=== PATIENT | male | born 1940 | race Caucasian/White ===

== ENCOUNTER 2018-01-24 07:30 | Outpatient (CLI) | payer MEDICARE, OTHER ==
--- NOTE | 2018-01-24 14:44 | MRI ---
MRI LUMBAR SPINE: 01/24/2018 HISTORY: Left lower extremity radiculopathy. Pain. COMPARISON: 09/14/2016 TECHNIQUE: Multiplanar, multisequence MR imaging of the lumbar spine is provided without contrast. FINDINGS: The sagittal STIR imaging demonstrates no focal area of osseous marrow edema. No anterolisthesis or retrolisthesis is noted within the lumbar spine. Assuming five lumbar type vertebral bodies, the conus medullaris terminates at the L1 level. There is a tiny syrinx noted at the distal-most aspect of the thoracic cord, best seen on axial image 5 of the T2 weighted imaging, at the T12-L1 level, stable. This is better assessed on thoracic spin e MRI. T12-L1: Mild bilateral facet hypertrophy. There is disk desiccation and mild anterior osteophyte fo rmation with no significant central canal or neural foraminal stenosis. L1-L2: Mild bilateral facet hypertrophy. There is disk desiccation. No significant central canal o r neural foraminal stenosis. Mild anterior osteophyte formation. L2-L3: Mild bilateral facet hypertrophy. There is minimal disk bulge with disk desiccation and mild anterior osteophyte formation. No significant central canal or neural foraminal stenosis. L3-L4: There is a small left paracentral disk protrusion, which causes a mild-moderate degree of lef t lateral recess stenosis, similar when compared to prior imaging. There is mild bilateral facet hyp ertrophy. There is no significant neural foraminal stenosis noted on either side. L4-L5: Disk space narrowing, disk desiccation, and mild disk bulge present. No significant central canal stenosis. Small disk protrusion in the left paracentral region. Minimal left lateral recess s tenosis. Mild left neural foraminal stenosis. No significant right neural foraminal stenosis. L5-S1: Disk space narrowing, disk desiccation, and degenerative endplate change noted. No central c anal stenosis. Bilateral facet hypertrophy with mild bilateral neural foraminal stenosis, unchanged. Stable cysts noted in the lower pole of the right kidney. IMPRESSION: Stable lumbar spine MRI, as detailed above. POS: [facility]
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
--- NOTE | 2018-01-24 14:54 | MRI ---
MRI THORACIC SPINE NONCONTRAST: 01/24/2018 HISTORY: A 77-year-old male with chronic mid back pain. FINDINGS: There is no compression fracture. No bone marrow edema. Disk space narrowing at T5-T6, T6-T7, T7-T8 , and T8-T9, with several small Schmorl's nodes. The disk space narrowing is greatest at T7-T8, wher e there is a broad-based central and bilateral paracentral (left greater than right) disk herniation or disk osteophyte complex, which indents the ventral aspect of the spinal cord. There is no high-gr cristian central spinal canal stenosis at any level. However, there is abundant fat in the posterior and bilateral epidural space, causing thecal sac stenosis. The thecal sac stenosis is moderate from appr oximately T5 through T6-T7. The thecal sac stenosis is moderate to severe at T7-T8. There is minima l dilation of the central canal of the spinal cord (minimal hydromyelia) from approximately T4 throug h T11. No severe neural foraminal stenosis at any level. Nonspecific left thyroid nodules are noted . IMPRESSION: 1. Thoracic spondylosis, with degenerative disease at several levels in the mid thoracic spine, wors t at T7-T8. 2. Small broad-based disk herniation versus disk-osteophyte complex, indenting the thoracic spinal c ord at T7-T8. POS: [facility]
== END 2018-01-24 07:31 | disposition home or self-care (01) ==
LOC: SCSMRI 07:30
PROVIDERS: ATTEND Neurological Surgery
DX: M47.812 Spondylosis without myelopathy or radiculopathy, cervical region (principal); R29.898 Other symptoms and signs involving the musculoskeletal system; M47.814 Spondylosis without myelopathy or radiculopathy, thoracic region; M51.34 Other intervertebral disc degeneration, thoracic region; M51.16 Intervertebral disc disorders with radiculopathy, lumbar region; M48.061 Spinal stenosis, lumbar region without neurogenic claudication; M48.07 Spinal stenosis, lumbosacral region; M51.37 Other intervertebral disc degeneration, lumbosacral region; M47.817 Spondylosis without myelopathy or radiculopathy, lumbosacral region; M25.78 Osteophyte, vertebrae; N28.1 Cyst of kidney, acquired; M99.73 Connective tissue and disc stenosis of intervertebral foramina of lumbar region
CPT/HCPCS: 72141; 72146; 72148

== ENCOUNTER 2018-04-30 15:07 | Emergency (ER) | payer MEDICARE, OTHER ==
[2018-04-30] MEDS ORDERED: Ketorolac Tromethamine 30 MG/ML VIAL ONE (15:30)
--- NOTE | 2018-04-30 16:31 | ULT ---
RIGHT LOWER EXTREMITY VENOUS DUPLEX ULTRASOUND INCLUDING COLOR AND SPECTRAL DOPPLER IMAGING: History: Right leg pain, swelling, and edema. FINDINGS: Exam performed from groin to ankle including visualized greater saphenous, common femoral, superficia l femoral, profunda femoral, popliteal, trifurcation and posterior tibial vein regions. Phasic flow a t all levels with normal compressibility and normal augmentation. No intraluminal thrombus. IMPRESSION: No evidence for deep venous thrombosis. POS: [facility]
== END 2018-04-30 15:49 | disposition home or self-care (01) ==
LOC: SCSER 15:07
DX: M25.561 Pain in right knee (principal); F41.9 Anxiety disorder, unspecified; F32.9 Major depressive disorder, single episode, unspecified; Z86.718 Personal history of other venous thrombosis and embolism; Z79.899 Other long term (current) drug therapy
CPT/HCPCS: J1885

== ENCOUNTER 2018-07-15 12:12 | Outpatient (CLI) | payer MEDICARE, OTHER ==
--- NOTE | 2018-07-15 12:46 | RAD ---
2 views of the chest: 07/15/2018 COMPARISON: 05/09/2014 HISTORY: Cough FINDINGS: No pneumothorax or pleural fluid. No focal consolidation or alveolar edema. Heart and media stinal contours appear grossly unremarkable. No acute osseous abnormality is noted. IMPRESSION: No radiographic evidence of acute cardiopulmonary disease.
== END 2018-07-15 12:13 | disposition home or self-care (01) ==
LOC: BICRAD 12:12
PROVIDERS: ATTEND Family Medicine
DX: R05 Cough (principal)
CPT/HCPCS: 36415; 71046; 80053; 81001; 85025; 87086

== ENCOUNTER 2018-11-14 08:58 | Inpatient (IN) | payer MEDICARE, OTHER ==
[2018-11-14] MEDS ORDERED: Ondansetron PF 4 MG/2 ML Vial ONE ×2 (09:02→12:32)
[2018-11-14] MEDS ORDERED: diphenhydrAMINE 50 MG/ML VIAL ONE ×2 (09:08→12:32)
[2018-11-14] MEDS ORDERED: methylPREDNISolone Sod Succ/PF 125 MG/2 ML VIAL ONE (09:08)
[2018-11-14] MEDS ORDERED: Famotidine/PF 20 mg/2ml Vial ONE (09:08)
[2018-11-14 09:30] LABS: #Basophils 0.1 thou/uL (0.0-0.2); #Eosinphils 0.3 thou/uL (0.0-0.7); #Lymphocytes 4.6 thou/uL (1.20-3.40); %Basophils 0.5 % (0.0-1.0); %Eosinophils 1.5 % (0.0-10.0); %Lymphocytes 26.9 % (21.0-51.0); %Neutrophils 65.1 % (42.0-75.0); Hemoglobin 13.5 g/dL (14.0-18.0); Mean Corpuscular HGB CONC 33.8 g/dL (32.0-36.0); Mean Platelet Volume 7.8 fL (7.4-10.4); Platelet Count 312 thou/uL (130-400); Red Blood Cell (RBC) Count 3.99 mill/uL (4.70-6.10); White Blood Cell (WBC) Count 16.9 thou/uL (4.8-10.8)
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
--- NOTE | 2018-11-14 09:33 | RAD ---
EXAM: Single view of the chest HISTORY: Chest pain COMPARISON: 07/18/2016 FINDINGS: Single view of the chest shows a normal sized cardiomediastinal silhouette. There is no bean dence of consolidation, mass, or pleural effusion. Degenerative changes are seen in the spine. IMPRESSION: No evidence of acute cardiopulmonary disease
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
[2018-11-14 09:35] LABS: PTT 23.7 SEC (22.9-36.1); Prothrombin Time 12.8 SEC (12.0-14.7)
[2018-11-14] MEDS ORDERED: Fentanyl 100 MCG/2 ML VIAL ONE ×7 (09:52→18:55)
[2018-11-14 09:53] LABS: ALT (SGPT) 14 U/L (8-55); AST (SGOT) 17 U/L (5-34); Albumin 4.6 g/dL (3.4-4.8); Alkaline Phosphatase 64 U/L (40-150); Anion Gap 18 mmol/L (10-20); BUN (Urea Nitrogen) 23 mg/dL (8.4-25.7); Bilirubin, Total 0.5 mg/dL (0.2-1.2); Calc. Creatinine Clearance 0 mL/min (70-130); Calcium 9.8 mg/dL (7.8-10.44); Carbon Dioxide 18 mmol/L (23-31); Chloride 108 mmol/L (98-107); Estimated GFR-MDRD 57; Globulin 2.1 g/dL (2.4-3.5); Glucose 172 mg/dL (83-110); Potassium 3.7 mmol/L (3.5-5.1); Protein, Total 6.7 g/dL (5.8-8.1); Sodium 140 mmol/L (136-145)
[2018-11-14] MEDS ORDERED: Ketorolac Tromethamine 30 MG/ML VIAL ONE ×2 (09:54→18:44)
[2018-11-14] MEDS ORDERED: Midazolam HCl 2 mg/2 ml Vial ONE (10:00)
[2018-11-14] MEDS ORDERED: Diazepam 5 MG TAB ONE (10:02)
[2018-11-14] MEDS ORDERED: Diazepam 10 MG/2 ML SYRINGE ONE (10:02)
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
--- NOTE | 2018-11-14 10:41 | CT ---
EXAM: 1. CT of the chest with contrast 2. CT of the abdomen and pelvis with contrast 3. Limited CT of the thoracic and lumbosacral spine with contrast HISTORY: Trauma after being trampled by a bull with chest pain, abdominal pain, and back pain. COMPARISON: None TECHNIQUE: 1. Multiple contiguous axial images were obtained in a CT the chest with contrast. Coronal reformats were performed. 2. Multiple contiguous axial images were obtained in a CT of the abdomen and pelvis with contrast. Co bhavya reformats were performed. 3. Limited CTs of the thoracic and lumbosacral spines were performed with contrast. Sagittal and jessie nal re-reformats were created based off images obtained in the chest, abdomen, and pelvic CTs. FINDINGS: CT CHEST: Mediastinum: Heart is normal in size without focal cardiac abnormality. No hilar or mediastinal lymph adenopathy. No mediastinal hemorrhage. Lungs: No focal infiltrates or nodules. Pleural space: No pneumothorax or pleural effusion. Thoracic bones: No evidence of acute fracture. Thoracic chest wall: Unremarkable. CT ABDOMEN/PELVIS: Peritoneum: No free air or free fluid, or stranding changes. Liver: Unremarkable. Gallbladder: Unremarkable. Adrenal glands: Unremarkable. Kidneys: Hypodensities in the kidneys measuring up to 1.8cm in size represent cysts. Spleen: Unremarkable. Pancreas: Unremarkable. Bowel: Scattered diverticula in the colon. Retroperitoneum: No lymphadenopathy. Atherosclerotic calcifications in the aorta. Pelvis: No focal mass or abnormality. The reproductive organs are unremarkable. Pelvic bones: No acute fracture identified. There is a fracture of the intertrochanteric left femur. LIMITED CT OF THE THORACIC AND LUMBOSACRAL SPINE: No fracture or dislocation are seen. Degenerative changes in the spine. No prevertebral soft tissue s welling are present. IMPRESSION: 1. No evidence of acute intrathoracic abnormality 2. No evidence of acute intra-abdominal or pelvic abnormality 3. No evidence of acute osseous abnormality of the thoracic or lumbosacral spine. 4. Bilateral renal cysts 5. Diverticulosis 6. Left proximal femur fracture
[2018-11-14] MEDS ORDERED: CEFAZOLIN 2 GM in Premix Bag 1 BAG IVPB SCH (11:15)
--- NOTE | 2018-11-14 11:31 | CON ---
DATE OF CONSULTATION: This is Aleksandar Meyers PA-C dictating a report for Frederic Johnson MD. HISTORY OF PRESENT ILLNESS: We were asked to see the patient after he was stopped by a bull. The patient is in room 9 in the emergency room. He is awake, alert, and in fair amount of distress. All of his family is at his bedside. Apparently, there was no loss of consciousness. The patient is able to answer questions well. I have been told by family they are Jehovah's Witnesses and do not wish to have any blood products whatsoever. The patient is complaining of significant left hip pain. He has good sensations down the left lower extremity. ALLERGIES: HE HAS MULTIPLE DRUG SENSITIVITIES. IT SOUNDS LIKE MORE NAUSEA, NOT A TRUE HISTAMINE RESPONSE, BUT HE CLAIMS CODEINE SULFATE, IODINE, MORPHINE, AND SENSITIVE TO OTHER NARCOTIC AGENTS. CURRENT MEDICATIONS: 1. Lorazepam. 2. CoQ10. PAST MEDICAL HISTORY: Positive for a blood clot in his arm after PICC line placement. He saw a doctor in [place], who said he is not susceptible to blood clots. He has also had history of MS and Lyme disease, gets treated for this. SURGICAL HISTORY: Vasectomy, sigmoid colon, hemorrhoids, appendectomy. PSYCHIATRIC HISTORY: Does struggle with a little anxiety and depression. SOCIAL HISTORY: No alcohol, nicotine, or drug use. Lives at home. Again, family is at bedside. FAMILY HISTORY: Not pertinent to this admission. REVIEW OF SYSTEMS: He has multiple health issues, but his main complaint is aches and pains from the recent bull trampling. PHYSICAL EXAMINATION: GENERAL: Well-nourished, well-developed male in a fair amount of distress in room 9 in the emergency room. His speech is clear, oriented x3. HEENT: He does have some bruising to the right upper forehead, but his face is otherwise symmetrical. Tongue midline. NECK: Supple. Trachea midline. EXTREMITIES: Upper extremities, equal size, shape, symmetry. Normal bulk and tone. Lower extremities, left lower extremity is definitely shortened and quite painful with any movement whatsoever. His DP and PT pulses are intact as are sensations. RESPIRATORY: No distress. ASSESSMENT: Bull trampling with an ensuing left hip fracture. PLAN: Spoke with Dr. Johnson. Would like to get him on the schedule today for a short TFN. I have talked to the family about this. They are all in agreement that it needed to be fixed. They reiterated they were Jehovah's Witnesses, we will take that into consideration. The surgery has been explained. They understand the risks, benefits and they are all amenable to go forth with surgery. Trauma will admit and are managing his other health issues. Job ID: [id number]
[2018-11-14] MEDS ORDERED: Rocuronium Bromide 10 MG/ML (10ML VIAL) ONE (12:32)
[2018-11-14] MEDS ORDERED: Lidocaine 2% PF 5 ML VIAL ONE (12:32)
[2018-11-14] MEDS ORDERED: Glycopyrrolate 0.2 MG/ML 5 ML SYRINGE ONE (12:32)
[2018-11-14] MEDS ORDERED: Dexamethasone 20 MG/5 ML VIAL ONE (12:32)
[2018-11-14] MEDS ORDERED: PROPOFOL 200 MG/20 ML VIAL ONE (12:32)
[2018-11-14 13:13] LABS: Bilirubin Negative (Negative); Blood, Urine Negative (Negative); Clarity Clear (Clear); Glucose, Urine (Dipstick) Normal (Negative); Leukocyte Negative Leu/uL (Negative); Nitrite Negative (Negative); Protein, Urine (Dipstick) Negative (Neg-Trace); Urobilinogen Normal mg/dL (Less than 2)
--- NOTE | 2018-11-14 13:45 | HP ---
HISTORY OF PRESENT ILLNESS: Mr. Platt is a 78-year-old man, a Jehovah witness, who was kicked by a bull, knocking him to the ground. The patient suffered no loss of consciousness. He immediately felt severe pain in his left hip, which made it impossible for him to bear weight. His witnessed the incident and summoned help. The patient was brought to the Emergency Department via ground EMS. He arrived with Rosa M Coma Scale of 15 and complaining of severe "12/10" left hip pain. He is otherwise able to move all extremities and follows commands. PAST MEDICAL HISTORY: Pertinent for polyposis coli, muscular sclerosis, Lyme disease, and previous lower extremity DVT. PAST SURGICAL HISTORY: Pertinent for hemorrhoidectomy, childhood appendectomy, and laparoscopic sigmoid colectomy with primary anastomosis for a large benign colonic polyp. SOCIAL HISTORY: He is , lives at home with his . He denies any cigarette smoking, ethanol, or illicit drug abuse. FAMILY HISTORY: Noncontributory for this patient's age. PREHOSPITAL MEDICATIONS: Includes; 1. Lorazepam 2 mg p.o. at bedtime. 2. CoQ10 of 10 mg p.o. daily. 3. Multiple vitamins and herbs. ALLERGIES: ALLERGIES TO MORPHINE SULFATE, IODINE, AND CODEINE. REVIEW OF SYSTEMS: A 10-point review of systems essentially unremarkable except as stated in past medical history and chief complaint. PHYSICAL EXAMINATION: GENERAL: This reveals a 78-year-old normally developed man, who is otherwise coherent and interactive and appears stated age. The patient is alert and oriented x3, appears to be in moderate acute distress secondary to severe left hip pain. VITAL SIGNS: Include blood pressure 160/86, pulse 104, respiratory rate is 22, temperature 98.4 degrees Fahrenheit, and oxygen saturation 96% on room air. HEENT: Reveals right periorbital ecchymosis with minimum soft tissue swelling. Otherwise, the remainder of the head is normocephalic. Pupils are equal, round, and reactive to light and accommodation. Extraocular muscles are intact bilaterally. The patient has no scleral icterus present. Midface is stable. No gross deformities or step-offs present. He has a normal bite. NECK: Cervical spine immobilized in a C-collar, maintained in a neutral position during my examination. He has no cervical neck tenderness to palpation. Due to distracting injuries, we did not attempt to perform any passive range of motion. HEART: Reveals regular rate and rhythm. No murmurs or gallops auscultated. LUNGS: Clear to auscultation bilaterally. Breathing, regular and unlabored. Chest wall is stable without any gross deformities or palpable crepitus. PELVIS: Left pelvis is exquisitely tender even with slight manipulation. EXTREMITIES: The left leg is shortened and externally rotated. Extremities otherwise reveals 2+ radial and pedal pulses bilaterally. No ankle edema is present. GENITOURINARY: Reveals bilateral descended testicles. Normal male genitalia. He has no blood in his urethral meatus. There was no ecchymosis or hematoma of the scrotum or perineum. NEUROLOGIC: Reveals no focal deficits present. LABORATORY FINDINGS: Today include a CBC with 16,900 white blood cells and hemoglobin and hematocrit are 13.5 and 40.1 respectively. Platelet count is 312,000. PTT and INR normal are normal 23.7 seconds and 1.0 respectively. Metabolic profile; sodium 140, potassium 3.7, chloride is 108, bicarb is 18, BUN 23, creatinine is 1.22, glucose 172, total bilirubin 0.5, and AST and ALT normal at 17 and 14 respectively. Alkaline phosphatase is also normal at 64. I have personally reviewed all radiographic studies including an unremarkable chest x-ray. X-ray of the pelvis reveals a comminuted displaced left intertrochanteric femur fracture. CT scan of the brain and cervical spine are unremarkable for any acute traumatic injuries. CT scan of the chest, abdomen, and pelvis are unremarkable for any acute intrathoracic or intraabdominal pathology. CT scan of the thoracic and lumbar spine revealed no fractures or dislocation. IMPRESSION: 1. Status post blunt trauma to the left hip been kicked by a bull. 2. Complete displaced left intertrochanteric femur fracture. 3. Right periorbital contusion. 4. Essential hypertension. PLAN: 1. Optimize pain control. 2. Orthopedic surgical consultation regarding the left hip fracture dislocation. 3. We will initiate chemical VTE prophylaxis following operative intervention to the left hip injury. Above findings and plan has been discussed with the patient and his large family at bedside. They indicated understanding of information given. I have answered their questions. The patient has granted consent for this admission and surgical intervention. Job ID: [id number]
[2018-11-14] MEDS ORDERED: ISOVUE-370 76%-LOCM 1 ML ONE (17:13)
[2018-11-14] MEDS ORDERED: Dextrose 50% Abboject 50 ML SYRINGE SLOW IVP PRN (17:44)
[2018-11-14] MEDS ORDERED: Ondansetron PF 4 MG/2 ML Vial IVP PRN (17:44)
[2018-11-14] MEDS ORDERED: Ondansetron ODT 4 MG TAB PO PRN (17:44)
[2018-11-14] MEDS ORDERED: Fentanyl 100 MCG/2 ML VIAL SLOW IVP PRN (17:44)
[2018-11-14] MEDS ORDERED: Dextrose 5% in Water 1,000 ML IV PRN (17:44)
[2018-11-14] MEDS ORDERED: Meperidine HCl/PF 25 MG/ML VIAL SLOW IVP PRN (17:57)
[2018-11-14] MEDS ORDERED: Ondansetron HCl/PF 4 MG/2 ML Vial IVP PRN (17:57)
[2018-11-14] MEDS ORDERED: Promethazine HCl 25 MG/ML VIAL SLOW IVP PRN (17:57)
[2018-11-14] MEDS: Acetaminophen 1,000 MG in Premix Bag 1 BAG IVPB SCH ×2 (19:40→23:19)
[2018-11-14] MEDS: Ketorolac Tromethamine 30 MG/ML VIAL IVP SCH ×2 (19:40→23:18)
[2018-11-14] MEDS: Sodium Chloride 0.9% 1,000 ML IV SCH ×2 (19:52→23:20)
[2018-11-14] MEDS ORDERED: Lorazepam 1 MG TAB PO SCH (21:00)
[2018-11-14] MEDS: Famotidine 20 MG TAB PO SCH (21:28)
[2018-11-14] MEDS: CEFAZOLIN 2 GM in Premix Bag 1 BAG IVPB SCH (21:30)
[2018-11-14 21:49] VITALS: BMI 29.3
[2018-11-14] MEDS: Senokot S 8.6-50 MG TAB PO SCH (22:31)
--- NOTE | 2018-11-14 22:38 | RAD ---
Left hip intraoperative fluoroscopy 2 views HISTORY: Hip fracture. FINDINGS: Intraoperative fluoroscopy was provided for internal fixation is performed by Dr. Johnson . Spot fluoroscopic images show short medullary noah and compression nail transfixing the left hip fracture, in anatomic alignment. Fluoroscopy time 50 seconds.
[2018-11-14] MEDS ORDERED: Gabapentin 100 MG CAP PO PRN (23:37)
[2018-11-14] MEDS ORDERED: Ibuprofen 600 MG TAB PO PRN (23:38)
[2018-11-14] MEDS: traMADol HCl 50 MG TAB PO SCH (23:53)
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
--- NOTE | 2018-11-15 01:13 | OP ---
DATE OF PROCEDURE: 11/14/2018 PROCEDURE PERFORMED: Left femur intramedullary nail. PREOPERATIVE DIAGNOSIS: intertrochanteric fracture POSTOPERATIVE DIAGNOSIS: intertrochanteric fracture. COMPLICATIONS: None. ESTIMATED BLOOD LOSS: 100 mL. PLATFORM BUILDER: Aleksandar Meyers PA-C IMPLANT: Synthes 11 mm short trochanteric nail with central screw. INDICATIONS: Mr. Platt is a 78-year-old male, who has been injured by a bull. He fractured the left proximal femur. He was indicated for intramedullary nail fixation to restore anatomic alignment and promote healing and promote early mobilization. Risks have been reviewed. 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 He is also at risk for wound complication infection, nerve or vascular injury, DVT, and others. DESCRIPTION OF PROCEDURE: Mr. Platt was identified in the preoperative holding area. His correct extremity was marked. He was carried to the operating room. He was positioned supine. General anesthesia was induced. A multidisciplinary time-out was performed. The left lower extremity was prepped and draped in sterile fashion. We began the procedure with placing the patient's left leg in traction. We manipulated the leg with traction and rotation. Once we had anatomic reduction, we prepped the leg. We made a small incision over the greater trochanter. We then inserted a guidewire. We overdrilled the guidewire. We then inserted our 11 mm trochanteric nail. This was seated appropriately. We then placed our central guidewire into the femoral head using the appropriate aiming arm. Once we had a central position, we proceeded to overdrill the guidewire. We then placed our central screw. At this point, we compressed the fracture with an appropriate device. We then locked the screw in the dynamic position. Finally, we placed a distal Crosslock screw. We thoroughly irrigated. We then closed with 0 Vicryl suture, 2-0 Vicryl suture, and mellisa for the skin. A sterile dressing was applied at this point. The patient was taken to the recovery room in good condition without complication. Job ID: [id number]
[2018-11-15] MEDS: Ketorolac Tromethamine 30 MG/ML VIAL IVP SCH (05:44)
[2018-11-15] MEDS: traMADol HCl 50 MG TAB PO SCH ×4 (05:45→23:43)
[2018-11-15] MEDS: CEFAZOLIN 2 GM in Premix Bag 1 BAG IVPB SCH (05:45)
[2018-11-15] MEDS ORDERED: Acetaminophen 500 MG TAB PO SCH ×2 (06:00→10:16)
[2018-11-15 07:22] LABS: #Lymphocytes 2.3 thou/uL (1.20-3.40); #Monocytes 1.2 thou/uL (0.11-0.59); #Neutrophils 15.8 thou/uL (1.40-6.50); %Basophils 0.1 % (0.0-1.0); %Eosinophils 0.1 % (0.0-10.0); %Lymphocytes 11.7 % (21.0-51.0); %Monocytes 6.1 % (0.0-10.0); Mean Corpuscular HGB CONC 33.5 g/dL (32.0-36.0); Mean Corpuscular Hemoglobin 34.3 pg (27.0-31.0); Mean Platelet Volume 7.9 fL (7.4-10.4); Platelet Count 232 thou/uL (130-400); RBC Distribution Width 11.9 % (11.5-14.5); Red Blood Cell (RBC) Count 2.91 mill/uL (4.70-6.10); White Blood Cell (WBC) Count 19.2 thou/uL (4.8-10.8)
[2018-11-15 07:40] LABS: Anion Gap 16 mmol/L (10-20); BUN (Urea Nitrogen) 21 mg/dL (8.4-25.7); Calc. Creatinine Clearance 55 mL/min (70-130); Calcium 8.4 mg/dL (7.8-10.44); Carbon Dioxide 19 mmol/L (23-31); Chloride 104 mmol/L (98-107); Estimated GFR-MDRD 49; Glucose 119 mg/dL (83-110); Magnesium 1.7 mg/dL (1.6-2.6); Phosphorus 3.4 mg/dL (2.3-4.7); Potassium 4.5 mmol/L (3.5-5.1); Sodium 134 mmol/L (136-145)
[2018-11-15] MEDS: Famotidine 20 MG TAB PO SCH ×2 (09:06→20:27)
[2018-11-15] MEDS: Polyethylene Glycol 3350 17 GM Packet PO SCH (09:06)
[2018-11-15] MEDS: Senokot S 8.6-50 MG TAB PO SCH ×2 (09:06→20:27)
[2018-11-15] MEDS: Aspirin 81 mg Enteric Coated Tablet PO SCH ×2 (09:13→20:27)
[2018-11-15] MEDS ORDERED: Fentanyl 100 MCG/2 ML VIAL SLOW IVP PRN (10:13)
[2018-11-15] MEDS ORDERED: HYDROcodone/Acetaminophen 5/325 mg Tablet PO PRN (10:13)
[2018-11-15] MEDS: HYDROcodone/Acetaminophen 5/325 mg Tablet PO SCH ×2 (11:50→18:05)
[2018-11-15] MEDS: Acetaminophen 325 MG TAB PO SCH ×3 (11:54→23:43)
[2018-11-15] MEDS: Diazepam 5 MG TAB PO SCH ×2 (15:22→20:27)
--- NOTE | 2018-11-15 15:33 | PRG ---
DATE OF SERVICE: 11/15/2018 SUBJECTIVE: The patient is currently on the surgical floor. He is hospital day 2, postoperative day 1 status post being knocked over by a bull. The patient sustained a hip fracture, which he has undergone open reduction and internal fixation of same and specifically intramedullary nail of his left femur. The patient tolerated this procedure well. Overnight, he did not have any issues. This morning though when trying to work with therapy, his pain was significant. The patient has been refusing his oral pain medication in fear of making him nauseated. To attempt to get him to move with therapy, Dr. Callaway did order one-time dose of fentanyl this morning, and the nurses explained to him that we can ensure that he has food on the stomach with Zofran available to attempt his oral medications. He and the family understood and agreed, and we will attempt this. Currently, the patient has been accepted to rehab and will likely be discharged there tomorrow. OBJECTIVE: VITAL SIGNS: Temperature is 97.8, heart rate 71, blood pressure 117/67, respirations 14, oxygen saturation 97% on room air. GENERAL: The patient is resting on the side of the bed. He is working with the therapist as we entered his room this morning. He is awake, alert, and appropriate. Rosa M coma scale is 15. HEENT: Unremarkable. LUNGS: Clear to auscultation with good inspiratory and expiratory effort. HEART: Regular rate and rhythm. ABDOMEN: Soft, flat, and nontender with active bowel sounds. EXTREMITIES: Neurovascularly intact x4. Postoperative dressing is clean, dry, and intact. LABORATORY FINDINGS: White blood cell count 19.1, hemoglobin 10.0, hematocrit 29.0, platelets 232. Sodium 134, potassium 4.5, chloride 104, CO2 of 19, BUN 21, creatinine 1.39, glucose 119, magnesium 1.7, phosphorus 3.4. There are no radiographs to review this morning. ASSESSMENT: 1. Status post being crushed by a bull. 2. Status post intramedullary nailing, left femur fracture. 3. Acute kidney injury. 4. Acute pain secondary to trauma. PLAN: Plan will be to adjust pain medications. Continue gentle fluid hydration. Encourage p.o. intake. Encourage physical and occupational therapy. We will recheck his kidney function in the morning. Adjust pain medications again as directed and work with the patient on his pain control. The patient will likely again be discharged to rehab tomorrow. The evaluation and examination were done with Dr. Callaway during rounds this morning. Job ID: [id number]
[2018-11-15] MEDS: traMADol HCl 50 MG TAB PO PRN (15:37)
[2018-11-15] MEDS ORDERED: Lorazepam 1 MG TAB PO SCH (21:00)
--- NOTE | 2018-11-16 01:20 | PRG ---
DATE OF SERVICE: 11/16/2018 SUBJECTIVE: Mr. Platt is a 78-year-old gentleman, Jehovah Witness, who was kicked by a bull, knocked him to the ground. The patient sustained displaced left intertrochanteric femur fracture and he underwent ORIF of left intertrochanteric femur fracture yesterday. Postop, the patient has been doing good. Pain is well controlled. Able to work with PT/OT today. He is able to sit up in the bed with still nonweightbearing from the left lower extremity. He developed no fever or shortness of breath. OBJECTIVE: GENERAL: The patient is lying down in bed comfortably. LUNGS: Clear bilaterally. HEART: Regular rate and rhythm. ABDOMEN: Soft, nondistended. NEUROLOGIC: No focal neuro deficits. MUSCULOSKELETAL: Left hip dressing is clean, clear, and intact. PLAN: Will be continue pain control. Continue DVT and gastritis prophylaxis. Continue working with PT/OT. Anticipate placement in rehab. Job ID: [id number]
[2018-11-16] MEDS: HYDROcodone/Acetaminophen 5/325 mg Tablet PO SCH ×3 (01:33→12:27)
[2018-11-16] MEDS: Acetaminophen 325 MG TAB PO SCH ×2 (06:52→12:25)
[2018-11-16] MEDS: traMADol HCl 50 MG TAB PO SCH ×3 (06:52→13:25)
[2018-11-16 08:42] VITALS: TEMP 98
[2018-11-16] MEDS: Aspirin 81 mg Enteric Coated Tablet PO SCH (09:43)
[2018-11-16] MEDS: Famotidine 20 MG TAB PO SCH (09:44)
[2018-11-16] MEDS: Senokot S 8.6-50 MG TAB PO SCH (09:44)
[2018-11-16] MEDS: Diazepam 5 MG TAB PO SCH (09:48)
[2018-11-16] MEDS: Polyethylene Glycol 3350 17 GM Packet PO SCH (09:48)
[2018-11-16] MEDS: traMADol HCl 50 MG TAB PO PRN (10:00)
[2018-11-16] MEDS ORDERED: Cyclobenzaprine 10 MG TAB PO PRN (10:57)
[2018-11-16 11:36] VITALS: BP 148/68
--- NOTE | 2018-11-16 22:46 | DIS ---
DATE OF ADMISSION: 11/14/2018 DATE OF DISCHARGE: 11/16/2018 ADMISSION DIAGNOSES: 1. Status post being kicked by a bull in left hip. 2. Complete displaced left intertrochanteric femur fracture. 3. Right periorbital contusion. 4. Essential hypertension. CONSULTATIONS: Orthopedics, Dr. Johnson. PROCEDURES: Left femur intramedullary nail. SUMMARY: The patient is a 78-year-old man, who was reportedly kicked by a bull knocking him to the ground. The patient was brought to the emergency department, where he underwent evaluation and examination, was noted to have a left intertrochanteric hip fracture. He was stabilized in the emergency department and eventually taken that same day to the operating room to undergo the above procedure, which he tolerated well. The patient would begin working with Physical and Occupational Therapy. The patient is a Taoist, and believes primarily in homeopathic medicines and initially he was reluctant to take pain medicines, eventually was convinced to utilize some medicines at least tramadol to assist in him working with Physical and Occupational Therapy. This did make a marked improvement of the pain, which the patient was able to be discharged to rehab facility. At the time of discharge, the patient's pain was controlled. He was tolerating a diet. He was ambulating with assistance. He will follow up with Dr. Johnson in 2 to 3 weeks, or sooner as needed. Job ID: [id number]
== END 2018-11-16 13:30 | DRG 481 ==
LOC: ERS 08:58 → SDC/OP 15:00 → SURG A 18:45
PROVIDERS: ADMIT Surgery; ATTEND Surgery
PROC: 0QS736Z Reposition Left Upper Femur with Intramedullary Internal Fixation Device, Percutaneous Approach (ICD-10-PCS; principal; 2018-11-14)
DX: S72.142A Displaced intertrochanteric fracture of left femur, initial encounter for closed fracture (principal); N17.9 Acute kidney failure, unspecified; S00.11XA Contusion of right eyelid and periocular area, initial encounter; F41.9 Anxiety disorder, unspecified; I10 Essential (primary) hypertension; Z88.5 Allergy status to narcotic agent; W55.22XA Struck by cow, initial encounter; Z88.2 Allergy status to sulfonamides; Z86.718 Personal history of other venous thrombosis and embolism; Z91.013 Allergy to seafood
CPT/HCPCS: 36415; 70450; 71045; 71260; 72125; 72170; 74177; 76000; 80048; 80053; 81003; 83735; 84100; 85025; 85610; 85730; 93005; 96374; 96375; 96376; C1713; G0390; J0131; J0690; J1100; J1200; J1885; J2001; J2250; J2405; J2704; J2930; J3010; J3360; Q9966; S0028

== ENCOUNTER 2018-12-20 20:25 | Inpatient (IN) | payer MEDICARE, OTHER ==
[2018-12-20 21:08] LABS: #Basophils 0.1 thou/uL (0.0-0.2); #Eosinphils 0.1 thou/uL (0.0-0.7); #Lymphocytes 2.8 thou/uL (1.20-3.40); #Monocytes 1.1 thou/uL (0.11-0.59); #Neutrophils 13.2 thou/uL (1.40-6.50); %Basophils 0.3 % (0.0-1.0); %Eosinophils 0.4 % (0.0-10.0); %Monocytes 6.5 % (0.0-10.0); %Neutrophils 76.8 % (42.0-75.0); Hemoglobin 12.1 g/dL (14.0-18.0); Mean Corpuscular HGB CONC 33.3 g/dL (32.0-36.0); Mean Corpuscular Hemoglobin 33.8 pg (27.0-31.0); Mean Platelet Volume 6.8 fL (7.4-10.4); Platelet Count 273 thou/uL (130-400); RBC Distribution Width 12.2 % (11.5-14.5); Red Blood Cell (RBC) Count 3.59 mill/uL (4.70-6.10); White Blood Cell (WBC) Count 17.2 thou/uL (4.8-10.8)
[2018-12-20 21:31] LABS: ALT (SGPT) 9 U/L (8-55); AST (SGOT) 13 U/L (5-34); Albumin 3.8 g/dL (3.4-4.8); Alkaline Phosphatase 117 U/L (40-110); Anion Gap 14 mmol/L (10-20); BUN (Urea Nitrogen) 11 mg/dL (8.4-25.7); Bilirubin, Total 0.7 mg/dL (0.2-1.2); Calc. Creatinine Clearance 0 mL/min (70-130); Calcium 8.9 mg/dL (7.8-10.44); Carbon Dioxide 18 mmol/L (23-31); Chloride 97 mmol/L (98-107); Estimated GFR-MDRD 71; Globulin 2.7 g/dL (2.4-3.5); Glucose 123 mg/dL (83-110); Potassium 3.9 mmol/L (3.5-5.1); Protein, Total 6.5 g/dL (5.8-8.1); Sodium 125 mmol/L (136-145)
[2018-12-20 21:46] LABS: Bacteria/HPF 1+ HPF (None Seen); Bilirubin Negative (Negative); Blood, Urine Negative (Negative); Clarity Clear (Clear); Glucose, Urine (Dipstick) Normal (Negative); Leukocyte 250 Leu/uL (Negative); Nitrite 2+ (Negative); Protein, Urine (Dipstick) Negative (Neg-Trace); RBC/HPF 0-3 HPF (0-3); Squamous Epithelial None Seen HPF (0-3); Urobilinogen Normal mg/dL (Less than 2)
--- NOTE | 2018-12-20 22:07 | PDOC.FPRHP ---
- History of Present Illness Chief Complaint: Dysuria, Frequency History of Present Illness: Mr. Platt is a pleasant 78 y/o male w/ a PMH significant for Peyronie 's Disease, BPH, MS and TIA who presents to the ED w/ a 3-4W history of dysuria and frequency. He states that he had begun a regimen of PO Bactrim 1 day prior, but became worried when he vomited twice and found his temperature to be 100.0 F. Of note, he had recently had a left hip reconstruction following a ranching accident and had been receiving in-patient rehab until 2W prior. He denies any hematuria and confusion, as well as chills, headaches, visual disturbances, chest pain or shortness of breath. PCP: Omar Urologist: Rock - Allergies/Adverse Reactions Allergies Allergy/AdvReac Type Severity Reaction Status Date / Time codeine Allergy throat Verified 11/14/18 21:47 closes up hydrocodone Allergy throat Verified 11/14/18 21:48 closes up iodine Allergy Verified 07/18/16 14:00 morphine Allergy throat Verified 11/14/18 21:47 closes up - Home Medications Medication Instructions Recorded Confirmed Type LORazepam [Lorazepam] 2 mg PO HS 11/14/18 12/21/18 History Acetaminophen [Tylenol Regular 650 mg PO Q6HR PRN 12/21/18 12/21/18 History Strength] Aspirin [Ecotrin Low Strength] 81 mg PO DAILY 12/21/18 12/21/18 History Ibuprofen [Motrin] 800 mg PO Q4HR PRN 12/21/18 12/21/18 History Phenazopyridine HCl [Azo Standard] 97.5 mg PO BID #14 tab 12/22/18 Rx Sulfamethoxazole/Trimethoprim 1 tab PO BID #14 tab 12/22/18 Rx [Bactrim DS] Comments: Shellfish (Anaphylaxis) - History PMHx: Lyme Disease, MS, Peyronie's, BPH, TIA PSHx: 1M s/p Left Hip Reconstruction Sigmoid Colectomy FHx: Non-Contributory Social: Denies x3. Works as a rancher. - Review of Systems General: reports: fever/chills. denies: weight/appetite/sleep changes, night sweats, fatigue Eyes: denies: eye pain, vision changes ENT: denies: nasal congestion, rhinorrhea Respiratory: denies: cough, congestion, shortness of breath Cardiovascular: denies: chest pain, edema Gastrointestinal: denies: nausea, vomiting, diarrhea, constipation, abdominal pain, GI bleeding Genitourinary: reports: dysuria, polyuria. denies: discharge Skin: denies: rashes Musculoskeletal: reports: pain, stiffness. denies: arthritis/arthralgias Neurological: denies: syncope, weakness - Vital signs BP: [138/95] HR: [83] RR: [18] Tmax: [] Pox: []% on [] Wt: [] - Physical Exam Constitutional: NAD, awake, alert and oriented, well developed HEENT: normocephalic and atraumatic, PERRLA, EOMI, conjunctiva clear, no scleral icterus, grossly normal vision, grossly normal hearing, normal nasal mucosa, MMM, oropharynx clear, good dention Neck: supple, FROM, trachea midline, no LAD Chest: no-tender to palpation, no lesions Heart: RRR, normal S1/S2, no murmurs/rubs/gallops, pulses present, no edema Lungs: CTAB, no respiratory distress, good air movement, no rales/rhonchi, no wheezing, no retractions Abdomen: soft, non-tender, bowel sounds present, no masses/distention Musculoskeletal: normal structure, normal tone Neurological: no focal deficit Skin: no rash/lesions, no jaundice Heme/Lymphatic: no unusual bruising or bleeding, no purpura, no petechia, no LAD Psychiatric: normal mood and affect, good judgment and insight, intact recent and remote memory FMR H&P: Results - Labs Result Diagrams: 12/22/18 06:01 12/22/18 06:01 Lab results: WBC 17.2 thou/uL (4.8-10.8) H 12/20/18 20:57 Hgb 12.1 g/dL (14.0-18.0) L 12/20/18 20:57 Hct 36.4 % (42.0-52.0) L 12/20/18 20:57 MCV 101.0 fL (78.0-98.0) H 12/20/18 20:57 Plt Count 273 thou/uL (130-400) 12/20/18 20:57 Neutrophils % 76.8 % (42.0-75.0) H 12/20/18 20:57 Sodium 125 mmol/L (136-145) L 12/20/18 20:57 Potassium 3.9 mmol/L (3.5-5.1) 12/20/18 20:57 Chloride 97 mmol/L (98-107) L 12/20/18 20:57 Carbon Dioxide 18 mmol/L (23-31) L 12/20/18 20:57 BUN 11 mg/dL (8.4-25.7) 12/20/18 20:57 Creatinine 1.01 mg/dL (0.7-1.3) 12/20/18 20:57 Glucose 123 mg/dL (83-110) H 12/20/18 20:57 Calcium 8.9 mg/dL (7.8-10.44) 12/20/18 20:57 Total Bilirubin 0.7 mg/dL (0.2-1.2) 12/20/18 20:57 AST 13 U/L (5-34) 12/20/18 20:57 ALT 9 U/L (8-55) 12/20/18 20:57 Alkaline Phosphatase 117 U/L (40-110) H 12/20/18 20:57 Serum Total Protein 6.5 g/dL (5.8-8.1) 12/20/18 20:57 Albumin 3.8 g/dL (3.4-4.8) 12/20/18 20:57 Urine Ketones Negative mg/dL (Negative) 12/20/18 21:31 Urine Blood Negative (Negative) 12/20/18 21:31 Urine Nitrite 2+ (Negative) A 12/20/18 21:31 Ur Leukocyte Esterase 250 Sudha/uL (Negative) A 12/20/18 21:31 Urine RBC 0-3 HPF (0-3) 12/20/18 21:31 Urine WBC 11-20 HPF (0-3) A 12/20/18 21:31 Ur Squamous Epith Cells None Seen HPF (0-3) 12/20/18 21:31 Urine Bacteria 1+ HPF (None Seen) 12/20/18 21:31 FMR H&P: A/P - Problem List (1) Failure of outpatient treatment Status: Acute Code(s): Z78.9 - OTHER SPECIFIED HEALTH STATUS (2) UTI (urinary tract infection) Status: Acute (3) Hyponatremia Status: Acute Code(s): E87.1 - HYPO-OSMOLALITY AND HYPONATREMIA (4) Status post hip surgery Status: Acute Code(s): Z98.890 - OTHER SPECIFIED POSTPROCEDURAL STATES - Plan 1. UTI w/ Failed Outpatient Treatment -History of BPH and Peyronie's Disease concerning, may be contributing factors to current symptoms -Physical exam unremarkable - afebrile w/o hypotension, tachycardia or CVA / suprapubic tenderness -Patient did not meet Sepsis Criteria -WBC: 17.2 -Lactic Acid: Pending -Urine Culture: Pending -Blood Culture: Pending -s/p 1 dose of Levaquin and Ceftriaxone in ED 2. Hyponatremia -Na: 125 -NS @ 125 ml/hr -Will continue to monitor 3. History of Recent Hip Surgery -Patient placed on Walking Program to encourage ambulation -PT: Consulted -OT: Consulted -Case Management: Consulted Code: Full Diet: HH Activity: As Tolerated DVT PPx: SCDs and Lovenox Dispo: Patient admitted to Medical Floor for IV antibiotic treatment. Await blood and urine cultures and transition to PO antibiotics. Expected LOS < 24H. FMR H&P: Upper Level - Pertinent history I was present with the news internship and scribed the above HPI. I made edits as needed. - Pertinent findings Pt overall well appearing. No CVA tenderness noted. Cardio: RRR, no murmurs or gallops Resp: CTA-B, no wheezes or crackles Abdomen: NTTP, no masses, no hernias - Plan Date/Time: 12/20/18 2205 ICarlos PGY-3, have evaluated this patient and agree with findings/ plan as outlined by news internship resident. Pertinent changes/additions are listed here. When we went down and saw the patient there was concern for sepsis. He only had an elevated white count. He had no abnormal vitals. VSS. There was concern for blood infection and patient was concerned. Pt had only been on bactrim one day. At this time we will admit patient for UTI and to continue to monitor. Will tx with Rocephin. At this time there is no concern for sepsis. Pt has peyrones and BPH would be complicating picture. Addendum - Attending - Attending Attestation Date/Time: 12/21/18 0843 I personally evaluated the patient and discussed the management with Dr. Gonzalez and Dr. Nice I agree with the History, Examination, Assessment and Plan documented above with any addition or exceptions noted below. Continue IV antibx. Rule out worsening urinary retension as complicating factor. Urology as needed. Cedrick
[2018-12-20] MEDS ORDERED: cefTRIAXone\\ROCEPHIN 2 GM VIAL ONE (22:16)
[2018-12-21 02:54] VITALS: BMI 27.7
[2018-12-21] MEDS ORDERED: Acetaminophen 325 MG TAB PO PRN (05:24)
[2018-12-21] MEDS ORDERED: Ondansetron ODT 4 MG TAB PO PRN (05:24)
[2018-12-21] MEDS ORDERED: Senokot S 8.6-50 MG TAB PO PRN (05:24)
[2018-12-21 05:57] LABS: Lactic Acid 2.1 mmol/L (0.5-2.2)
--- NOTE | 2018-12-21 06:00 | PDOC.FM ---
- Subjective Subjective: Patient doing well this morning. Reports that he is still having dysuria, worse than his baseline dysuria at home due to his peyronie's disease. Abdomen not ttp , otherwise doing well. No complaints, agreeable to current plan of care. - Objective Vital Signs & Weight: Vital Signs (12 hours) Temp Pulse Resp BP Pulse Ox 12/20/18 23:55 98.1 F 81 20 149/79 H 98 Weight Weight 85.275 kg Result Diagrams: 12/20/18 20:57 12/21/18 06:54 Phys Exam - Physical Examination Constitutional: NAD HEENT: moist MMs, sclera anicteric Neck: supple, full ROM Respiratory: no wheezing, clear to auscultation bilateral Cardiovascular: RRR, no significant murmur Gastrointestinal: soft, non-tender Musculoskeletal: no edema, pulses present Neurological: non-focal, normal sensation Lymphatic: no nodes Psychiatric: normal affect, A&O x 3 Skin: no rash, normal turgor Dx/Plan (1) Failure of outpatient treatment Code(s): Z78.9 - OTHER SPECIFIED HEALTH STATUS Status: Acute (2) Hyponatremia Code(s): E87.1 - HYPO-OSMOLALITY AND HYPONATREMIA Status: Acute (3) Status post hip surgery Code(s): Z98.890 - OTHER SPECIFIED POSTPROCEDURAL STATES Status: Acute (4) UTI (urinary tract infection) Status: Acute - Plan Plan: 78 y/o male w/ a PMHx significant for Peyronie's Disease, BPH, MS and TIA is admitted for complicated UTI that failed outpatient tx #UTI w/ Failed Outpatient Treatment -History of BPH and Peyronie's Disease concerning, may be contributing factors to current symptoms -Patient afebrile overnight -WBC: 17.2 -Lactic Acid: 2.1 -Urine Culture: Pending -Blood Culture: Pending, NGTD -s/p 1 dose of Levaquin and Ceftriaxone in ED, transition to PO Bactrim today #Hyponatremia -Na: 125 > 134 -NS @ 125 ml/hr -Will continue to monitor #History of Recent Hip Surgery -Patient placed on Walking Program to encourage ambulation -PT/OT consult -Case Management: Consulted Code: Full Diet: HH Activity: As Tolerated DVT PPx: SCDs and Lovenox Dispo: Patient admitted to Medical Floor for IV antibiotic treatment. Blood and urine cultures pending. Transition to PO antibiotics today, PT/OT Addendum - Attending - Attending Attestation Date/Time: 12/21/18 2190 I personally evaluated the patient and discussed the management with Dr. Tubbs I agree with the History, Examination, Assessment and Plan documented above with any addition or exceptions noted below - Patient feeling better except for dysuria more than his usual. Also not urinating as much as his usual. Afebrile VSS A/P: 1) UTI - continue current antibiotics. Await urine culture. Will give trial of pyridium for dysuria. Will also check bladder USG for urinary retention. 2) MS- stable
[2018-12-21] MEDS: Sodium Chloride 0.9% 1,000 ML IV SCH ×2 (07:38→14:44)
[2018-12-21 07:45] LABS: Anion Gap 13 mmol/L (10-20); BUN (Urea Nitrogen) 12 mg/dL (8.4-25.7); Calc. Creatinine Clearance 71 mL/min (70-130); Calcium 9.1 mg/dL (7.8-10.44); Carbon Dioxide 24 mmol/L (23-31); Chloride 101 mmol/L (98-107); Estimated GFR-MDRD 70; Glucose 95 mg/dL (83-110); Potassium 4.2 mmol/L (3.5-5.1); Sodium 134 mmol/L (136-145)
[2018-12-21] MEDS: Enoxaparin Sodium 40 MG/0.4 ML SYRINGE SC SCH (08:40)
[2018-12-21] MEDS ORDERED: Sulfameth/Trimethoprim DS 800-160mg TAB PO SCH (09:00)
[2018-12-21] MEDS ORDERED: Enoxaparin Sodium 40 MG/0.4 ML SYRINGE SC SCH (09:00)
[2018-12-21] MEDS: Phenazopyridine HCl 97.5 MG TABLET PO SCH ×2 (12:19→18:22)
[2018-12-21] MEDS ORDERED: cefTRIAXone\\ROCEPHIN 1 GM in Sodium Chloride 0.9% 100 ML IVPB SCH ×2 (19:00→22:00)
[2018-12-22] MEDS: Sodium Chloride 0.9% 1,000 ML IV SCH ×2 (00:24→08:34)
--- NOTE | 2018-12-22 05:11 | PDOC.FM ---
- Subjective Subjective: Patient reports that he is still having dysuria, with the pain being felt mostly in his penis toward the end of urination. He states that he also has polyuria. Also states that he is agitated by the IVs being in his arm, eager to go home. - Objective Vital Signs & Weight: Vital Signs (12 hours) Temp Pulse Resp BP Pulse Ox 12/22/18 04:00 97.3 F L 73 15 132/69 96 12/22/18 00:00 97.6 F 74 15 129/69 97 12/21/18 20:00 97.4 F L 74 16 156/72 H 97 Weight Weight 85.275 kg I&O: 12/20/18 12/21/18 12/22/18 06:59 06:59 06:59 Intake Total 3640 Output Total 2325 Balance 1315 Result Diagrams: 12/22/18 06:01 12/22/18 06:01 Phys Exam - Physical Examination Constitutional: NAD (though clearly uncomfortable) HEENT: moist MMs, sclera anicteric Neck: supple, full ROM Respiratory: no wheezing, clear to auscultation bilateral Cardiovascular: RRR, no significant murmur Gastrointestinal: soft, non-tender Musculoskeletal: no edema, pulses present Neurological: normal sensation, moves all 4 limbs Lymphatic: no nodes Psychiatric: normal affect, A&O x 3 Skin: no rash, normal turgor Dx/Plan (1) Failure of outpatient treatment Code(s): Z78.9 - OTHER SPECIFIED HEALTH STATUS Status: Acute (2) Hyponatremia Code(s): E87.1 - HYPO-OSMOLALITY AND HYPONATREMIA Status: Acute (3) Status post hip surgery Code(s): Z98.890 - OTHER SPECIFIED POSTPROCEDURAL STATES Status: Acute (4) UTI (urinary tract infection) Status: Acute - Plan Plan: 78 y/o male w/ a PMHx significant for Peyronie's Disease, BPH, MS and TIA is admitted for complicated UTI that failed outpatient tx #UTI w/ Failed Outpatient Treatment -History of BPH and Peyronie's Disease concerning, may be contributing factors to current symptoms -Patient afebrile overnight -WBC: 17.2 -Lactic Acid: 2.1 -Urine Culture: Pending -Blood Culture: Pending, NGTD -s/p 1 dose of Levaquin and Ceftriaxone in ED, was continued on ceftriaxone overnight and will like transition to PO abx today and d/c home -Azo for discomfort #Hyponatremia -Na: 125 > 134 > 128 -NS @ 125 ml/hr -Will continue to monitor #History of Recent Hip Surgery -Patient placed on Walking Program to encourage ambulation -PT/OT consult -Case Management: Consulted Code: Full Diet: HH Activity: As Tolerated DVT PPx: SCDs and Lovenox Dispo: Patient admitted to Medical Floor for IV antibiotic treatment. Blood and urine cultures pending. Transition to PO antibiotics today, PT/OT, likely d/c today Addendum - Attending - Attending Attestation Date/Time: 12/22/18 5686 I personally evaluated the patient and discussed the management with Dr. Tubbs I agree with the History, Examination, Assessment and Plan documented above with any addition or exceptions noted below - Patient c/o continued discomfort with urination; no improvement with pyridium. Feels he is urinating more. Afebrile VSS. A/P: 1) UTI- culture pending; Bladder scan with no retention. Plan to d/c home later today after culture returns.
[2018-12-22 06:21] LABS: #Eosinphils 0.2 thou/uL (0.0-0.7); #Lymphocytes 2.4 thou/uL (1.20-3.40); #Monocytes 0.6 thou/uL (0.11-0.59); #Neutrophils 5.4 thou/uL (1.40-6.50); %Basophils 0.5 % (0.0-1.0); %Eosinophils 2.8 % (0.0-10.0); %Lymphocytes 27.9 % (21.0-51.0); %Monocytes 6.8 % (0.0-10.0); Hemoglobin 11.1 g/dL (14.0-18.0); Mean Corpuscular HGB CONC 34.7 g/dL (32.0-36.0); Mean Corpuscular Hemoglobin 34.9 pg (27.0-31.0); Mean Platelet Volume 7.2 fL (7.4-10.4); Platelet Count 265 thou/uL (130-400); RBC Distribution Width 12.1 % (11.5-14.5); Red Blood Cell (RBC) Count 3.16 mill/uL (4.70-6.10); White Blood Cell (WBC) Count 8.7 thou/uL (4.8-10.8)
[2018-12-22 06:54] LABS: ALT (SGPT) 8 U/L (8-55); AST (SGOT) 15 U/L (5-34); Albumin 3.4 g/dL (3.4-4.8); Alkaline Phosphatase 95 U/L (40-110); Anion Gap 12 mmol/L (10-20); BUN (Urea Nitrogen) 8 mg/dL (8.4-25.7); Bilirubin, Total 0.5 mg/dL (0.2-1.2); Calc. Creatinine Clearance 74 mL/min (70-130); Calcium 8.9 mg/dL (7.8-10.44); Carbon Dioxide 21 mmol/L (23-31); Chloride 99 mmol/L (98-107); Estimated GFR-MDRD 74; Globulin 2.6 g/dL (2.4-3.5); Glucose 107 mg/dL (83-110); Potassium 4.4 mmol/L (3.5-5.1); Sodium 128 mmol/L (136-145)
[2018-12-22] MEDS ORDERED: Phenazopyridine HCl 97.5 MG TABLET PO SCH (07:32)
[2018-12-22] MEDS ORDERED: Polyethylene Glycol 3350 17 GM Packet PO ONE (08:00)
[2018-12-22] MEDS: Enoxaparin Sodium 40 MG/0.4 ML SYRINGE SC SCH (08:26)
[2018-12-22] MEDS: Phenazopyridine HCl 97.5 MG TABLET PO SCH ×3 (08:26→16:09)
[2018-12-22 15:13] VITALS: BP 135/70; TEMP 98.1
--- NOTE | 2018-12-22 20:36 | DIS ---
DATE OF ADMISSION: 12/20/2018 DATE OF DISCHARGE: 12/22/2018 ADMITTING RESIDENT: Carlos Nice MD ADMITTING ATTENDING: Gareth Engel MD DISCHARGE RESIDENT: Ashely Tubbs MD DISCHARGE ATTENDING: Ximena Jarrett MD CONSULTATIONS: OT/PT, walking program, Case Management. PRIMARY DIAGNOSES: Complicated urinary tract infection, hyponatremia. SECONDARY DIAGNOSIS: History of recent hip surgery. DISCHARGE MEDICATIONS: 1. Tylenol 650 mg p.o. q.6 hours p.r.n. 2. Aspirin 81 mg p.o. daily. 3. Ibuprofen 800 mg p.o. q.4 hours p.r.n. 4. Lorazepam 2 mg p.o. at bedtime. 5. Phenazopyridine 97.5 mg p.o. b.i.d. x14 tabs. 6. Bactrim DS one tab p.o. b.i.d. x7 days. DISCONTINUED MEDICATIONS: 1. Ceftriaxone. 2. Lovenox. 3. Zofran. 4. MiraLAX. 5. Senokot. HISTORY OF PRESENT ILLNESS AND HOSPITAL COURSE: The patient is a 78-year-old male with past medical history of Peyronie disease, BPH, MS, and TIA, who presented after 3 to 5 days of dysuria and recent prescription of p.o. Bactrim outpatient, which he had only taken one dose and had a bout of emesis. He was admitted with complicated UTI and hyponatremia with a sodium of 125. He was given one dose of Levaquin and ceftriaxone in the ED, and then transitioned to ceftriaxone for the remainder of his hospital stay. His urine culture showed probable contamination, containing > three different species, and thus the sensitivities were not able to be obtained. His sodium corrected with normal saline. He worked with PT/OT during the hospitalization for his recent hip surgery and they recommended continued PT at home with home health. DISPOSITION: Stable. DISCHARGE INSTRUCTIONS: 1. Location: Home. 2. Diet: Heart healthy. 3. Activity: As tolerated. 4. Followup: Follow up with PCP within one week. Job ID: [id number] MTDD
== END 2018-12-22 16:47 | disposition home health service (06) | DRG 690 ==
LOC: ERS 20:25 → SJJU 21:53
PROVIDERS: ADMIT Family Medicine; ATTEND Family Medicine
DX: N39.0 Urinary tract infection, site not specified (principal); E87.1 Hypo-osmolality and hyponatremia; F41.9 Anxiety disorder, unspecified; F43.29 Adjustment disorder with other symptoms; N40.1 Benign prostatic hyperplasia with lower urinary tract symptoms; R35.0 Frequency of micturition; R39.11 Hesitancy of micturition; R35.8 Other polyuria; N48.6 Induration penis plastica; G35 Multiple sclerosis; Z88.5 Allergy status to narcotic agent; Z90.49 Acquired absence of other specified parts of digestive tract; Z88.1 Allergy status to other antibiotic agents; Z86.73 Personal history of transient ischemic attack (TIA), and cerebral infarction without residual deficits; Z91.013 Allergy to seafood; Z79.899 Other long term (current) drug therapy; Z79.82 Long term (current) use of aspirin; Z86.718 Personal history of other venous thrombosis and embolism; Z98.52 Vasectomy status
CPT/HCPCS: 36415; 51798; 80048; 80053; 81003; 81015; 82550; 83605; 83880; 84484; 85025; 87040; 87086; 93005; 96361; 96365; 96375; J0696; J1650; J1956; J3490

== ENCOUNTER 2019-05-21 09:04 | Outpatient (CLI) | payer MEDICARE, OTHER ==
--- NOTE | 2019-05-21 13:08 | CT ---
CT ABDOMEN AND PELVIS WITHOUT IV CONTRAST: HISTORY: Abdominal pain. Left lower quadrant pain. COMPARISON: 11/14/2018. FINDINGS: Absence of IV contrast reduces the sensitivity of the exam, particularly for evaluation of solid orga ns. Oral contrast was administered. There is a calcified granuloma in the right lower lung. No calcified gallstones are seen. No calcul i are noted in the kidneys, ureters, or the urinary bladder. No hydroureteral nephrosis is seen on e ither side. The prostate is enlarged. Cysts in the right kidney are stable. No free air or free fluid is seen in the abdomen or pelvis. The small bowel loops are not abnormally dilated. There are postop changes of appendectomy. Postop changes are also seen in the region of t he rectosigmoid. There is colonic diverticulosis without diverticulitis. No abnormally loculated fl uid collection is seen to suggest abscess formation. There are vascular calcifications without evidence of aneurysmal dilatation of the abdominal aorta. There are degenerative changes in the spine. Interval reduction and internal fixation of the left pr oximal femoral fracture has occurred in the interim. IMPRESSION: 1. No CT evidence of urinary tract calculi or obstruction. 2. Colonic diverticulosis without diverticulitis. POS: [id number]
== END 2019-05-21 09:05 | disposition home or self-care (01) ==
LOC: SCSCT 09:04
PROVIDERS: ATTEND Family Medicine
DX: R63.4 Abnormal weight loss (principal); R10.9 Unspecified abdominal pain; K57.30 Diverticulosis of large intestine without perforation or abscess without bleeding
CPT/HCPCS: 74176

== ENCOUNTER 2021-06-23 10:52 | Outpatient (CLI) | payer MEDICARE, OTHER | END 2021-06-23 10:53 | disposition home or self-care (01) | LOC: TBSIIMAG 10:52 | PROVIDERS: ATTEND Family Medicine | DX: M50.30 Other cervical disc degeneration, unspecified cervical region (principal); G35 Multiple sclerosis | CPT/HCPCS: 72141 ==

== ENCOUNTER 2024-11-26 12:00 | Outpatient (CLI) | payer MEDICARE, OTHER | END 2024-11-26 12:01 | disposition home or self-care (01) | LOC: RAD 12:00 | PROVIDERS: ATTEND Otolaryngology | DX: I69.091 Dysphagia following nontraumatic subarachnoid hemorrhage (principal); G45.0 Vertebro-basilar artery syndrome | CPT/HCPCS: 70551; 74230 ==

== ENCOUNTER 2025-01-27 07:19 | Outpatient (CLI) | payer MEDICARE, OTHER | END 2025-01-27 07:20 | disposition home or self-care (01) | LOC: ULT 07:19 | PROVIDERS: ATTEND Otolaryngology | DX: E04.9 Nontoxic goiter, unspecified (principal) | CPT/HCPCS: 76536 ==